=== PATIENT | male | born 1965 | race Caucasian/White ===

== ENCOUNTER 2017-02-28 10:12 | Inpatient (IN) | payer SELFPAY ==
[~2017-02-28] VITALS: Ht 188 cm; Wt 109.0 kg
[2017-02-28] VITALS (10 sets, daily range): BP systolic 123–168; BP diastolic 80–97; PULSE 56–88; RESP 16–20; TEMP 97.8–98.7; O2SAT 95–99
[2017-02-28] MEDS ORDERED: SODIUM CHLOR 0.9% 1000 ML INJ 1,000 ML IV ONE (12:10)
[2017-02-28 12:15] LABS: I-STAT POTASSIUM 3.8 MMOL/L (3.5-4.9); I-STAT SODIUM 143 MMOL/L (138-146)
[2017-02-28 12:18] LABS: AUTOMATED NEUTROPHIL # 3.2 TH/MM3 (1.8-7.7); BASOPHIL % 0.7 % (0.0-2.0); EOSINOPHIL # 0.1 TH/MM3 (0-0.4); EOSINOPHIL % 2.6 % (0.0-4.0); HEMATOCRIT 36.9 % (39.0-51.0); HEMO FLAGS DIFF FINAL; LYMPH % 27.8 % (9.0-44.0); LYMPHOCYTE # 1.5 TH/MM3 (1.0-4.8); MEAN CELL VOLUME 91.2 FL (80.0-100.0); MEAN CORPUSCULAR HEMOGLOBIN 30.6 PG (27.0-34.0); MEAN CORPUSCULAR HGB CONC 33.6 % (32.0-36.0); MONO % 9.6 % (0.0-8.0); NEUT % 59.3 % (16.0-70.0); PLATELET COUNT 166 TH/MM3 (150-450); RED BLOOD COUNT 4.05 MIL/MM3 (4.50-5.90); RED CELL DISTRIBUTION WIDTH 14.2 % (11.6-17.2); WHITE BLOOD COUNT 5.3 TH/MM3 (4.0-11.0)
[2017-02-28 12:19] LABS: APTT (PATIENT) 28.1 SEC (24.3-30.1); INTERNATIONAL NORMALIZED RATIO 0.9 RATIO
[2017-02-28 12:32] LABS: ANION GAP 8 MEQ/L (5-15); AST (GOT) 14 U/L (15-37); BICARBONATE 24.9 MEQ/L (21.0-32.0); BLOOD UREA NITROGEN 14 MG/DL (7-18); CHLORIDE 108 MEQ/L (98-107); GLOMERULAR FILTRATION RATE 62 ML/MIN (>89); POTASSIUM 3.7 MEQ/L (3.5-5.1); SODIUM (NA) 141 MEQ/L (136-145)
[2017-02-28 12:33] LABS: ALT (GPT) 23 U/L (12-78)
[2017-02-28 12:37] LABS: ALKALINE PHOSPHATASE 83 U/L (45-117); CREATINE KINASE 120 U/L (39-308); TOTAL BILIRUBIN ADULT 0.3 MG/DL (0.2-1.0)
--- NOTE | 2017-02-28 12:52 | RADRPT ---
EXAM DATE/TIME: 02/28/2017 11:56 [facility] COMPARISON: No previous studies available for comparison. INDICATIONS : Generalize weakness nausea,syncope RADIATION DOSE: 40.38 CTDIvol (mGy) This report was called by Dr. Diana Hernandez to Dr. Gayle at 12: 10 MEDICAL HISTORY : Unable to obtain SURGICAL HISTORY : Unabl to obtain ENCOUNTER: Initial ACUITY: 1 day PAIN SCALE: 3/10 LOCATION: cranial TECHNIQUE: Multiple contiguous axial images were obtained of the head. Using automated exposure control and adj ustment of the mA and/or kV according to patient size, radiation dose was kept as low as reasonably a chievable to obtain optimal diagnostic quality images. DICOM format image data is available electro nically for review and comparison. FINDINGS: CEREBRUM: The ventricles are normal for age. No evidence of midline shift, mass lesion, hemorrhage or acute in farction. No extra-axial fluid collections are seen. POSTERIOR FOSSA: The cerebellum and brainstem are intact. The 4th ventricle is midline. The cerebellopontine angle i s unremarkable. EXTRACRANIAL: The visualized portion of the orbits is intact. SKULL: The calvaria is intact. No evidence of skull fracture. CONCLUSION: 1. No acute intracranial abnormality. Leonardo Hernandez MD on February 28, 2017 at 12:49 Board Certified Radiologist. This report was verified electronically.
--- NOTE | 2017-02-28 12:56 | RADRPT ---
EXAM DATE/TIME: 02/28/2017 12:19 [facility] COMPARISON: No previous studies available for comparison. INDICATIONS : Stroke alert, confusion, dizziness. MEDICAL HISTORY : None. SURGICAL HISTORY : None. ENCOUNTER: Initial ACUITY: 1 day PAIN SCORE: 0/10 LOCATION: Bilateral chest FINDINGS: A single view of the chest demonstrates the lungs to be symmetrically aerated without evidence of mas s, infiltrate or effusion. The cardiomediastinal contours are unremarkable. Osseous structures are intact. CONCLUSION: No acute disease. Doug Núñez Jr., MD on February 28, 2017 at 12:54 Board Certified Radiologist. This report was verified electronically.
--- NOTE | 2017-02-28 13:02 | PD ---
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 Patient believes he passed out. Patient recalls pulling on the side of the road because he felt so ill and sick. Patient also noted feeling weak in his arms and legs and continue. She denied numbness difficulty speaking cough fever shortness of breath. Patient states his headache has persisted since he has been in the ER. [facility] Past Medical History Medical History: Denies Significant Hx Diminished Hearing: No Tetanus Vaccination: > 5 Years Influenza Vaccination: No Past Surgical History Eye Surgery: Yes (cataracts ) Social History Alcohol Use: Yes (ocassionally) Tobacco Use: Yes (1 pack per day) Substance Use: No (pt denies) Allergies-Medications (Allergen,Severity, Reaction): Coded Allergies: No Known Allergies (Unverified , 02/28/17) Reported Meds & Prescriptions Reported Meds & Active Scripts Active No Active Prescriptions or Reported Medications Review of Systems ROS Limitations: Clinical Condition, Altered Mental Status Except as stated in HPI: all other systems reviewed are Neg General / Constitutional: No: Fever, Chills, Weight Gain, Weight Loss, Other Eyes: No: Diploplia, Blurred Vision, Photophobia, Drainage, Redness, Foreign Body Sensation, Pain, Tearing, Blind Spots, Visual changes, Blindness, Other HENT: Positive: Headaches, No: Vertigo, Lightheadedness, Sore Throat, Rhinitis , Rhinorrhea, Congestion, Nosebleed, Neck Stiffness, Neck Pain, Masses, Gingival Bleeding, Dental Difficulties, Ear Discharge, Earache, Other Cardiovascular: Positive: Chest Pain or Discomfort, No: Palpitations, Irregular Rhythm, Tachycardia, Diaphoresis, Syncope, Dyspnea on exertion, Varicosities, Edema, Cyanosis, Varicosities, Phlebitis, Claudication, Other Respiratory: No: Cough, Shortness of Breath, Wheezing, Sneezing, Orthopnea, Hemoptysis, Stridor, Night Sweats, Pleuritic Pain, Other Gastrointestinal: Positive: Nausea, No: Vomiting, Diarrhea, Abdominal Pain, Hematemesis, Hematochezia, Constipation, Changes in Bowel Habits, Indigestion, Dysphagia, Loss of Appetite, Other Genitourinary: No: Urgency, Frequency, Dysuria, Nocturia, Hematuria, Decreased Urinary Output, Oliguria, Hesitancy, Dribbling, Incontinence, Pelvic Pain, Flank Pain, Dyspareunia, Discharge, Dysmenorrhea, Menorrhagia, Metorrhagia, Vaginal Bleeding, Other Musculoskeletal: No: Myalgias, Arthralgias, Limited ROM, Weakness, Cramping, Edema, Pain, Atrophy, Other Skin: No Rash, No Itching, No Dryness, No Lumps, No Hives, No Change in Pigmentation, No Change in nails, No Alopecia, No Lesions, No Breast Lumps, No Breast Tenderness, No Breast Swelling, No Other Neurologic: Positive: Weakness, Other (lightheaded), No: Dizziness, Syncope, Focal Abnormalities, Coordination Problem, Tremor, Ataxia, Headache, Change in Mentation, Slurred Speech, Paresthesia, Incontinence, Seizures, Sensory Disturbance Psychiatric: No: Anxiety, Depression, Suicidal Ideations, Disorder of Thought, Mood Disorder, Substance Abuse, Homicidal Ideation, Other Endocrine: No: Heat Intolerance, Cold Intolerance, Polyuria, Polydipsia, Other Hematologic/Lymphatic: No: Easy Bruising, Lymph Node Enlargement, Other Physical Exam Exam Limitations: Clinical Condition Narrative GENERAL: GENERAL: [32-year-old male who appears fatigued SKIN: Focused skin assessment warm/dry.no lesions no cyanosis no erythema HEAD: Atraumatic. Normocephalic. EYES: Pupils equal and round and reactive . No scleral icterus. No injection or drainage. ENT: No nasal bleeding or discharge. Mucous membranes pink and moist. NECK: Trachea midline. No JVD. CARDIOVASCULAR: S1-S2 appreciated. Regular rate and rhythm. No murmur appreciated. Pulses normal throughout. RESPIRATORY: No accessory muscle use. Clear to auscultation. Breath sounds equal bilaterally. GASTROINTESTINAL: Abdomen soft, non-tender, nondistended. Hepatic and splenic margins not palpable. Bowel sounds normal. No peritoneal signs. MUSCULOSKELETAL: No obvious deformities. No clubbing. No cyanosis. No edema. NEUROLOGICAL: Awake and alert and oriented 3.. Patient has decreased taste tester strength on the right upper extremity and mild drift in the right upper external and mild drift in the right lower extremity PSYCHIATRIC: Affect flat; insight and judgment normal. No suicidal or homicidal ideation. SKIN: Focused skin assessment warm/dry.no lesions no cyanosis no erythema HEAD: Atraumatic. Normocephalic. EYES: Pupils equal and round and reactive . No scleral icterus. No injection or drainage. ENT: No nasal bleeding or discharge. Mucous membranes pink and moist. NECK: Trachea midline. No JVD. CARDIOVASCULAR: S1-S2 appreciated. Regular rate and rhythm. No murmur appreciated. Pulses normal throughout. RESPIRATORY: No accessory muscle use. Clear to auscultation. Breath sounds equal bilaterally. GASTROINTESTINAL: Abdomen soft, non-tender, nondistended. Hepatic and splenic margins not palpable. Bowel sounds normal. No peritoneal signs. MUSCULOSKELETAL: No obvious deformities. No clubbing. No cyanosis. No edema. NEUROLOGICAL: Awake and alert and oriented 3.. No obvious cranial nerve deficits. Motor and sensory exam grossly within normal limits. Normal speech. No meningeal signs. PSYCHIATRIC: Appropriate mood and affect; insight and judgment normal. No suicidal or homicidal ideation. Data Data Last Documented VS Vital Signs Date Time Temp Pulse Resp B/P Pulse Ox O2 Delivery O2 Flow Rate FiO2 02/28/17 15:24 98.0 72 16 157/88 99 Room Air 02/28/17 11:45 2.00 Orders Diet Npo (02/28/17 Lunch) Activity Bed Rest (02/28/17 ) Electrocardiogram (02/28/17 ) Prothrombin Time / Inr (Pt) (02/28/17 12:10) Act Partial Throm Time (Ptt) (02/28/17 12:10) Complete Blood Count With Diff (02/28/17 12:10) Fibrinogen (02/28/17 12:10) Ua Includes Microscopic (02/28/17 12:10) Drug Screen, Random Urine (02/28/17 12:10) Ct Brain W/O Iv Contrast(Rout) (02/28/17 ) Consult Neurology (02/28/17 ) Blood Glucose (02/28/17 12:10) Ecg Monitoring (02/28/17 12:10) Neuro Checks Q2HX12,Q4H (02/28/17 12:10) Nursing Bedside Swallow Assess .ONCE (02/28/17 12:10) Iv Access Insert/Monitor (02/28/17 12:10) NPO (02/28/17 12:10) Oximetry (02/28/17 12:10) Oxygen Administration (02/28/17 12:10) Sodium Chlor 0.9% 1000 Ml Inj (Ns 1000 M (02/28/17 12:10) Resp Oxygen Devante C Titrat 1-4 L (02/28/17 12:10) Cath For Specimen (02/28/17 12:10) Mri Brain W/O Contrast (02/28/17 12:10) Mra Brain W/O Contrast (Cow) (02/28/17 12:10) Mra Carotids W Contrast (02/28/17 12:10) Us Carotid Arteries Comp Bilat (02/28/17 ) Alcohol (Ethanol) (02/28/17 11:45) Creatine Kinase (Cpk) (02/28/17 11:45) Comprehensive Metabolic Panel (02/28/17 11:45) I-Stat Creatinine (02/28/17 11:45) I-Stat Profile (02/28/17 11:45) Troponin I (02/28/17 11:45) Chest, Single Ap (02/28/17 ) (Hub Use Only)Inp Phy Cons/Ref (02/28/17 ) Aspirin (Aspirin) (02/28/17 15:30) Metoclopramide Inj (Reglan Inj) (02/28/17 15:30) Ondansetron Inj (Zofran Inj) (02/28/17 15:30) Labs Laboratory Tests Test 02/28/17 02/28/17 11:45 12:40 White Blood Count 5.3 TH/MM3 Red Blood Count 4.05 MIL/MM3 Hemoglobin 12.4 GM/DL Bedside Hemoglobin 11.2 G/DL Hematocrit 36.9 % Bedside Hematocrit 33.0 % Mean Corpuscular Volume 91.2 FL Mean Corpuscular Hemoglobin 30.6 PG Mean Corpuscular Hemoglobin 33.6 % Concent Red Cell Distribution Width 14.2 % Platelet Count 166 TH/MM3 Mean Platelet Volume 9.1 FL Neutrophils (%) (Auto) 59.3 % Lymphocytes (%) (Auto) 27.8 % Monocytes (%) (Auto) 9.6 % Eosinophils (%) (Auto) 2.6 % Basophils (%) (Auto) 0.7 % Neutrophils # (Auto) 3.2 TH/MM3 Lymphocytes # (Auto) 1.5 TH/MM3 Monocytes # (Auto) 0.5 TH/MM3 Eosinophils # (Auto) 0.1 TH/MM3 Basophils # (Auto) 0.0 TH/MM3 CBC Comment DIFF FINAL Differential Comment Prothrombin Time 10.0 SEC Prothromb Time International 0.9 RATIO Ratio Activated Partial 28.1 SEC Thromboplast Time Fibrinogen 342 mg/dL Bedside Sodium 143 MMOL/L Sodium Level 141 MEQ/L Bedside Potassium 3.8 MMOL/L Potassium Level 3.7 MEQ/L Bedside Chloride 104 MMOL/L Chloride Level 108 MEQ/L Carbon Dioxide Level 24.9 MEQ/L Anion Gap 8 MEQ/L Bedside Blood Urea Nitrogen 14 MG/DL Blood Urea Nitrogen 14 MG/DL Creatinine 1.21 MG/DL Bedside Creatinine 1.2 MG/DL Estimat Glomerular Filtration 62 ML/MIN Rate Bedside Glucose 109 MG/DL Random Glucose 103 MG/DL Calcium Level 8.5 MG/DL Total Bilirubin 0.3 MG/DL Aspartate Amino Transf 14 U/L (AST/SGOT) Alanine Aminotransferase 23 U/L (ALT/SGPT) Alkaline Phosphatase 83 U/L Total Creatine Kinase 120 U/L Troponin I LESS THAN 0.02 NG/ML Total Protein 6.8 GM/DL Albumin 3.2 GM/DL Ethyl Alcohol Level LESS THAN 3 MG/DL Urine Color LIGHT-YELLOW Urine Turbidity CLEAR Urine pH 7.0 Urine Specific [place] 1.009 Urine Protein NEG mg/dL Urine Glucose (UA) NEG mg/dL Urine Ketones NEG mg/dL Urine Occult Blood NEG Urine Nitrite NEG Urine Bilirubin NEG Urine Urobilinogen LESS THAN 2.0 MG/DL Urine Leukocyte Esterase NEG Urine WBC LESS THAN 1 /hpf Microscopic Urinalysis Comment Urine Opiates Screen NEG Urine Barbiturates Screen NEG Urine Amphetamines Screen NEG Urine Benzodiazepines Screen NEG Urine Cocaine Screen NEG Urine Cannabinoids Screen NEG [facility] Medical Decision Making Medical Screen Exam Complete: Yes Emergency Medical Condition: Yes Medical Record Reviewed: Yes Interpretation(s) EKG shows normal sinus rhythm LVH no acute ST changes CT scan of the brain is negative Chemistry unremarkable troponin negative UA negative urine drug screen negative Differential Diagnosis Differential diagnoses altered mental status acute cephalgia TIA CVA chest pain acute coronary syndrome Narrative Course This is a 52-year-old patient who has a remote history of hypertension who began to develop chest pain then subsequently developed a severe headache with a sick feeling in his stomach lightheadedness and diaphoresis which caused him to pass out. Patient recalls pulling over to the inside of the road since the onset of symptoms he has felt very weak and he has weakness in the right upper extremity and right lower extremity . She had a brain is negative troponin 1 is normal EKG showed no acute ischemic changes urine drug screen is negative Stroke alert called us and symptoms are improving no TPA was given patient continues to complain of headache aspirin full-strength given along with Reglan and Zofran. Does case with Dr. Jones. Patient to be admitted to the medical service on a telemetry bed to have a MRA and MRI of the brain performed normal carotid Doppler studies and to have repeat troponin levels performed. Patient' s has stable vital signs at this time Diagnosis Primary Impression: Syncope Additional Impressions: Right sided weakness Chest pain Admitting Information Admitting Physician Requests: Admit Scripts No Active Prescriptions or Reported Meds Condition: Stable Paramjit Gayle MD Feb 28, 2017 13:02
[2017-02-28 14:08] LABS: AMPHETAMINE, URINE NEG (NEG); BARBITURATES, URINE NEG (NEG); COCAINE, URINE NEG (NEG)
[2017-02-28 14:11] LABS: BLOOD, URINE NEG (NEG); GLUCOSE,URINE NEG (NEG); KETONE, URINE NEG (NEG); NITRITE,URINE NEG (NEG); URINE COLOR LIGHT-YELLOW (YELLW/STRAW)
--- NOTE | 2017-02-28 15:04 | RADRPT ---
EXAM DATE/TIME: 02/28/2017 14:21 [facility] COMPARISON: No previous studies available for comparison. INDICATIONS : Cephalgia. MEDICAL HISTORY : Hypertension. SURGICAL HISTORY : Cataracts/ Rt shoulder. ENCOUNTER: Initial ACUITY: 1 day PAIN SCORE: 4/10 LOCATION: head Please note a normal MRA of the brain does not entirely exclude the possibility of a small aneurysm, nor the possibility of distal intracranial vessel disease. TECHNIQUE: 3D time of flight MRA was performed. Source images, multiplanar STS MIP, and 3D volume MIP reconstru ctions were reviewed. FINDINGS: There is excellent visualization of the major intracranial arteries out to the second-order branch ve ssels. There is no evidence for aneurysm, vessel truncation or stenosis, and no evidence for vascula r malformation. CONCLUSION: 1. Negative examination. Leonardo Hernandez MD on February 28, 2017 at 14:59 Board Certified Radiologist. This report was verified electronically.
--- NOTE | 2017-02-28 15:12 | RADRPT ---
EXAM DATE/TIME: 02/28/2017 14:21 [facility] COMPARISON: CT BRAIN W/O CONTRAST, February 28, 2017, 11:56. INDICATIONS : Cephalgia. MEDICAL HISTORY : Hypertension. SURGICAL HISTORY : Cataracts. Rt shoulder. ENCOUNTER: Initial ACUITY: 1 day PAIN SCORE: 4/10 LOCATION: head TECHNIQUE: Multiplanar, multisequence MRI of the brain was performed without contrast. FINDINGS: CEREBRUM: The ventricles are normal for age. No evidence of midline shift, mass lesion, hemorrhage or acute in farction. No extraaxial fluid collections are seen. The pituitary gland and suprasellar cistern are normal in configuration. WHITE MATTER: No significant signal abnormalities are seen in the white matter. POSTERIOR FOSSA: The cerebellum and brainstem are intact. The 4th ventricle is midline. The cerebellopontine angle is unremarkable. The cerebellar tonsils are normal in position. DIFFUSION IMAGING: No focal areas of restricted diffusion are seen. No evidence of acute infarction. EXTRACRANIAL: The visualized portions of the orbits and paranasal sinuses are unremarkable. CONCLUSION: Normal examination. Doug Núñez Jr., MD on February 28, 2017 at 15:08 Board Certified Radiologist. This report was verified electronically.
--- NOTE | 2017-02-28 15:20 | RADRPT ---
EXAM DATE/TIME: 02/28/2017 14:21 [facility] COMPARISON: No previous studies available for comparison. INDICATIONS : Syncope. MEDICAL HISTORY : Syncope. SURGICAL HISTORY : Right shoulder surgery. ENCOUNTER: Initial ACUITY: 1 day PAIN SCORE: 0/10 LOCATION: Bilateral neck PEAK SYSTOLIC VELOCITIES (cm/sec): ICA/CCA RATIO: Right: 1.0 Left: 0.6 ICA: Right: 112 Left: 88 CCA: Right: 111 Left: 153 ECA: Right: 90 Left: 127 VERTEBRAL: Right: 64 antegrade Left: 51 antegrade Elevated flow velocities and ICA/CCA ratios have been found to correlate with increased degrees of vessel stenosis, calculated as percentage of diameter relative to a normal segment of distal ICA/CCA FINDINGS: RIGHT CAROTID: Minimal calcified plaque of the proximal ICA. No significant stenosis is visualized. The waveforms a re within normal limits. LEFT CAROTID: Minimal calcified plaque of the proximal ICA. No significant stenosis is visualized. The waveforms a re within normal limits. VERTEBRAL ARTERIES: Antegrade flow is seen in both vertebral arteries. MISCELLANEOUS: None. CONCLUSION: 1. No hemodynamically significant stenosis involving either carotid artery. 2. Antegrade flow involving both vertebral arteries. Doug Núñez Jr., MD on February 28, 2017 at 15:17 Board Certified Radiologist. This report was verified electronically.
[2017-02-28] MEDS ORDERED: ONDANSETRON HCL 4 MG/2 ML VIAL IV PUSH ONE (15:30)
[2017-02-28] MEDS ORDERED: METOCLOPRAMIDE HCL 10 MG/2 ML VIAL IV PUSH ONE (15:30)
[2017-02-28] MEDS ORDERED: ASPIRIN 325 MG TAB PO ONE (15:30)
[2017-02-28] MEDS ORDERED: GADODIAMIDE PF 287 MG/ML 20 ML VIAL (for RAD MRI) IV ONE (16:12)
--- NOTE | 2017-02-28 16:13 | EKG ---
Date Performed: 02/28/2017 Time Performed: 11:48:17 PTAGE: 52 years EKG: Sinus rhythm NORMAL ECG NO PREVIOUS TRACING DOCTOR: Kishan Leiva Interpretating Date/Time 02/28/2017 16:12:42
--- NOTE | 2017-02-28 16:13 | RADRPT ---
EXAM DATE/TIME: 02/28/2017 14:21 [facility] COMPARISON: No previous studies available for comparison. INDICATIONS : Stroke. CONTRAST: 20 cc Omniscan (gadodiamide) IV MEDICAL HISTORY : Hypertension. SURGICAL HISTORY : Cataracts/Rt shoulder. ENCOUNTER: Initial ACUITY: 1 day PAIN SCORE: 0/10 LOCATION: neck Percent stenosis is calculated using the diameter of the stenotic region over the diameter of the nor mal distal internal carotid artery. TECHNIQUE: Bolus infused MRA of the extracranial circulation was performed using a neurovascular coil. Post pro cessing was performed including rotating subvolume maximum intensity projections of each carotid huy ry, rotating full volume maximum intensity projections of both carotid arteries, sagittal and coronal sliding thin slab reformations of each carotid artery, and left oblique sliding thin slab reformatio n through the aortic arch to include the origin of the arch branch vessels. FINDINGS: AORTIC ARCH: There is a three vessel origin of the great vessels from the aorta. No evidence of ostial narrowing. RIGHT CAROTID: The common carotid artery is intact. The carotid bulb has a normal configuration without ulceration or narrowing. The internal carotid artery lumen is smooth without stenosis. The external carotid ar mary is intact. LEFT CAROTID: The common carotid artery is intact. The carotid bulb has a normal configuration without ulceration or narrowing. The internal carotid artery lumen is smooth without stenosis. The external carotid ar mary is intact. VERTEBRALS: The vertebral arteries have a symmetric diameter. No stenotic lesions are seen. CONCLUSION: 1. Normal MRA examination. No evidence for significant flow limiting stenosis in the carotid or verte bral arteries. Kit Kelsey MD on February 28, 2017 at 16:08 Board Certified Radiologist. This report was verified electronically.
[2017-02-28] MEDS ORDERED: ENALAPRILAT 1.25 MG/ML VIAL IV PUSH PRN (16:30)
--- NOTE | 2017-02-28 16:35 | HHI.HP ---
[facility] Service [facility] Primary Care Physician No Primary Care Physician Admission Diagnosis TIA vs CVA Diagnoses: (1) Right sided weakness Diagnosis: Principal (2) Chest pain Diagnosis: Principal Chief Complaint: headache Travel History International Travel<30 Days: No Contact w/Intl Traveler <30 Da: No Traveled to Known Affected Are: No History of Present Illness patient is a 52 y/o male with history of hypertension- not on any medication, presented to ER with headache. he says that he woke up with ' terrible headache this morning'.while he was driving to work he started to feel sick with chest pain and nausea. he says that the pain was midsternal with some radiation to the upper neck. he had some nausea but no emesis. he says that then he started to have some weakness of the right upper and lower extremity-although more pronounced in right hand. he doesn't remember if he had any slurred speech. he says that then he passed out. he regained his consciousness after a few minutes however still had some headache and right sided weakness for which he decided to come to ER. stroke alert was called at the time of arrival to ER. at the time of my evaluation he was comfortable with no chest pain and with improved headache. Review of Systems Cardiovascular: COMPLAINS OF: Chest pain Gastrointestinal: COMPLAINS OF: Nausea Neurologic: COMPLAINS OF: Headache Past Family Social History Past Medical History hypertension Past Surgical History shoulder surgery Reported Medications none Allergies: Coded Allergies: No Known Allergies (Unverified , 02/28/17) Active Ordered Medications Current Medications Sodium Chloride (NS 1000 ml Inj) 1,000 ml @ 70 mls/hr [id number] ONCE IV Last administered on 02/28/17 12:32; Start 02/28/17 at 12:10; Stop 03/01/17 at 02:27 Aspirin (Aspirin) 325 mg ONCE ONCE PO Last administered on 02/28/17 15:34; Start 02/28/17 at 15:30; Stop 02/28/17 at 15:31; Status DC Metoclopramide HCl (Reglan Inj) 5 mg ONCE ONCE IV PUSH Last administered on 15:34; Start 02/28/17 at 15:30; Stop 02/28/17 at 15:31; Status DC Ondansetron HCl (Zofran Inj) 4 mg ONCE ONCE IV PUSH Last administered on 15:34; Start 02/28/17 at 15:30; Stop 02/28/17 at 15:31; Status DC Gadodiamide (Omniscan Pf Inj) 20 ml STK-MED ONCE IV Last administered on 16:12; Start 02/28/17 at 16:12; Stop 02/28/17 at 16:13; Status DC Family History not significant. Social History smokes a pack a day- drinks occasionally. Physical Exam Vital Signs Vital Signs Date Time Temp Pulse Resp B/P Pulse Ox O2 Delivery O2 Flow Rate FiO2 02/28/17 15:24 98.0 72 16 157/88 99 Room Air 02/28/17 13:00 97.9 73 16 151/84 98 Room Air 02/28/17 12:13 98 Room Air 02/28/17 12:13 18 98 Room Air 02/28/17 11:45 99 2.00 02/28/17 11:45 95 Nasal Cannula 2.00 02/28/17 11:40 97.8 76 17 159/83 99 Room Air 02/28/17 10:33 79 16 123/82 99 Room Air 02/28/17 10:26 79 17 98 Room Air 02/28/17 10:14 98.7 88 20 168/92 98 Room Air Physical Exam GENERAL: This is a well-nourished, well-developed patient, in no apparent distress. SKIN: No rashes, ecchymoses or lesions. Cool and dry. HEAD: Atraumatic. Normocephalic. No temporal or scalp tenderness. EYES: Pupils equal round and reactive. Extraocular motions intact. No scleral icterus. No injection or drainage. ENT: Nose without bleeding, purulent drainage or septal hematoma. Throat without erythema, tonsillar hypertrophy or exudate. Uvula midline. Airway patent. NECK: Trachea midline. No JVD or lymphadenopathy. Supple, nontender, no meningeal signs. CARDIOVASCULAR: Regular rate and rhythm without murmurs, gallops, or rubs. RESPIRATORY: Clear to auscultation. Breath sounds equal bilaterally. No wheezes , rales, or rhonchi. GASTROINTESTINAL: Abdomen soft, non-tender, nondistended. No hepato-splenomegaly , or palpable masses. No guarding. MUSCULOSKELETAL: Extremities without clubbing, cyanosis, or edema. No joint tenderness, effusion, or edema noted. No calf tenderness. Negative Homans sign bilaterally. NEUROLOGICAL: Awake and alert. mild weakness of the right upper extremity. Laboratory Laboratory Tests Test 02/28/17 02/28/17 11:45 12:40 White Blood Count 5.3 Red Blood Count 4.05 Hemoglobin 12.4 Bedside Hemoglobin 11.2 Hematocrit 36.9 Bedside Hematocrit 33.0 Mean Corpuscular Volume 91.2 Mean Corpuscular Hemoglobin 30.6 Mean Corpuscular Hemoglobin 33.6 Concent Red Cell Distribution Width 14.2 Platelet Count 166 Mean Platelet Volume 9.1 Neutrophils (%) (Auto) 59.3 Lymphocytes (%) (Auto) 27.8 Monocytes (%) (Auto) 9.6 Eosinophils (%) (Auto) 2.6 Basophils (%) (Auto) 0.7 Neutrophils # (Auto) 3.2 Lymphocytes # (Auto) 1.5 Monocytes # (Auto) 0.5 Eosinophils # (Auto) 0.1 Basophils # (Auto) 0.0 CBC Comment DIFF FINAL Differential Comment Prothrombin Time 10.0 Prothromb Time International 0.9 Ratio Activated Partial 28.1 Thromboplast Time Fibrinogen 342 Bedside Sodium 143 Sodium Level 141 Bedside Potassium 3.8 Potassium Level 3.7 Bedside Chloride 104 Chloride Level 108 Carbon Dioxide Level 24.9 Anion Gap 8 Bedside Blood Urea Nitrogen 14 Blood Urea Nitrogen 14 Creatinine 1.21 Bedside Creatinine 1.2 Estimat Glomerular Filtration 62 Rate Bedside Glucose 109 Random Glucose 103 Calcium Level 8.5 Total Bilirubin 0.3 Aspartate Amino Transf 14 (AST/SGOT) Alanine Aminotransferase 23 (ALT/SGPT) Alkaline Phosphatase 83 Total Creatine Kinase 120 Troponin I LESS THAN 0.02 Total Protein 6.8 Albumin 3.2 Ethyl Alcohol Level LESS THAN 3 Urine Color LIGHT-YELLOW Urine Turbidity CLEAR Urine pH 7.0 Urine Specific [place] 1.009 Urine Protein NEG Urine Glucose (UA) NEG Urine Ketones NEG Urine Occult Blood NEG Urine Nitrite NEG Urine Bilirubin NEG Urine Urobilinogen LESS THAN 2.0 Urine Leukocyte Esterase NEG Urine WBC LESS THAN 1 Microscopic Urinalysis Comment Urine Opiates Screen NEG Urine Barbiturates Screen NEG Urine Amphetamines Screen NEG Urine Benzodiazepines Screen NEG Urine Cocaine Screen NEG Urine Cannabinoids Screen NEG Result Diagram: 02/28/17 1145 02/28/17 1145 Imaging Last Impressions Head Magnetic Resonance Angiography 02/28/17 1210 Signed Impressions: Service Date/Time: Sunday, February 28, 2017 14:21 - CONCLUSION: 1. Negative examination. Leonardo Hernandez MD Brain MRI 02/28/17 1210 Signed Impressions: Service Date/Time: Sunday, February 28, 2017 14:21 - CONCLUSION: Normal examination. Doug Núñez Jr., MD Head CT 02/28/17 0000 Signed Impressions: Service Date/Time: Tuesday, February 28, 2017 11:56 - CONCLUSION: 1. No acute intracranial abnormality. Leonardo Hernandez MD Chest X-Ray 02/28/17 0000 Signed Impressions: Service Date/Time: Sunday, February 28, 2017 12:19 - CONCLUSION: No acute disease. Doug Núñez Jr., MD Carotid Artery Ultrasound 02/28/17 0000 Signed Impressions: Service Date/Time: Tuesday, February 28, 2017 14:21 - CONCLUSION: 1. No hemodynamically significant stenosis involving either carotid artery. 2. Antegrade flow involving both vertebral arteries. Doug Núñez Jr., MD EKG; normal sinus rhythm Assessment and Plan Assessment and Plan A/P - right sided weakness/ syncope- possible TIA MRI/MRA brain normal with no significant stenosis on carotid doppler continue aspirin- consult PT/OT and neurology check echo- neuro-checks -chest pain; now is pain free- EKG is normal- on aspirin- will trend the cardiac enzymes -hypertension; noncompliant; vasotec prn for now- will likely start scheduled antihypertensive meds tomorrow. -DVT prophylaxis with SCD's Discussed Condition With ER physician and the patient. case management. Physician Certification 2 Midnight Certification Type: Admission for Inpatient Services Order for Inpatient Services The services are ordered in accordance with Medicare regulations or non- Medicare payer requirements, as applicable. In the case of services not specified as inpatient-only, they are appropriately provided as inpatient services in accordance with the 2-midnight benchmark. Estimated LOS (days): 2 days is the estimated time the patient will need to remain in the hospital, assuming treatment plan goals are met and no additional complications. Post-Hospital Plan: Not yet determined Problem Qualifiers (1) Chest pain: Qualified Code: R07.9 - Chest pain, unspecified type Rai Lee MD Feb 28, 2017 16:35
[2017-02-28] MEDS: ACETAMINOPHEN 325 MG TAB PO PRN ×2 (17:14→21:42)
[2017-02-28] MEDS: ONDANSETRON HCL 4 MG/2 ML VIAL IV PUSH PRN (21:41)
[2017-02-28] MEDS ORDERED: GLUCAGON 1 MG/ML VIAL OTHER PRN (21:45)
[2017-02-28] MEDS ORDERED: SODIUM CHLORIDE 0.9% FLUSH 5 ML FLUSH IV FLUSH PRN (21:45)
[2017-02-28] MEDS ORDERED: DEXTROSE 50% IN WATER 50 ML VIAL(D50) IV PUSH PRN (21:45)
[2017-03-01] VITALS (10 sets, daily range): BP systolic 141–165; BP diastolic 86–93; PULSE 54–81; RESP 16–19; TEMP 96.8–98.6; O2SAT 94–98
[2017-03-01] MEDS: ACETAMINOPHEN 325 MG TAB PO PRN ×2 (04:20→08:32)
[2017-03-01] MEDS ORDERED: ASPIRIN 81 MG CHEW TAB ONE (05:04)
[2017-03-01] MEDS: INSULIN ASPART SUPPLEMENTAL SCALE SQ SCH ×4 (06:40→20:30)
[2017-03-01] MEDS: SODIUM CHLORIDE 0.9% FLUSH 5 ML FLUSH IV FLUSH SCH ×2 (08:28→20:30)
[2017-03-01] MEDS: ASPIRIN EC 81 MG TABEC PO SCH (08:32)
--- NOTE | 2017-03-01 09:14 | MB ---
cc: ANAND YUAN M.D. DATE OF CONSULTATION: 02/28/2017 REASON FOR CONSULTATION Stroke alert. HISTORY OF PRESENT ILLNESS Mr. Mclain is a very nice 52-year-old man who presented to the emergency room after acute onset of right-sided weakness involving the right arm and right leg. He also had a complaint of chest pain. He had some lightheadedness and passed out when he came to, noted the weakness on the right side. There is no seizure activity. He has no prior history of stroke or TIA. His symptoms were very minimal at onset and were showing rapid improvement. Therefore, I felt he was not a candidate for TPA. He has continued to improve but still has some residual weakness on the right, he states. PAST MEDICAL HISTORY He has a history of hypertension, cataract surgery. MEDICATION Medications at home: None. ALLERGIES None known. SOCIAL HISTORY He does smoke. He drinks alcohol occasionally. Denies drug abuse. NEUROLOGIC EXAMINATION VITAL SIGNS: His blood pressure currently is 160/97, pulse 56, respirations 17, temperature 98 degrees. Higher cortical functions are normal. Speech is normal. Cranial nerves are intact. Motor exam, at the present time he has 5/5 strength of all major groups in both upper and lower extremities. Although, he does state he feels somewhat weak on the right. I cannot detect this on exam. Reflexes are symmetric. Fine motor skills are normal. Sensation intact. IMAGING STUDIES MRI of the brain is normal. No sign of acute stroke. MRA of the brain is normal. No sign of large vessel occlusion. MRA of the neck is normal with no sign of significant carotid artery disease and the vertebrals are normal as well. Carotid ultrasound is normal with no sign of any stenosis. LABORATORY DATA White count is 5,300. Hemoglobin 12.4, hematocrit 36.9%, platelets are 166,000. Sodium is 143, potassium 3.8, chloride 104, CO2 24.9, BUN is 14, creatinine 1.21, glucose is 109, PT 10, INR 0.9, APTT 28.1. Tox screen negative. Urinalysis is normal. EKG was sinus rhythm. IMPRESSION Probable TIA which appears to have resolved. As noted above the patient was not a candidate for TPA due to the minimal symptoms which were showing rapid resolution. RECOMMENDATIONS Start aspirin 325 mg daily. Will review the echocardiogram and also check a lipid panel. Also monitor telemetry to rule out atrial fibrillation. If no etiology is identified, consider long-term cardiac monitoring as an outpatient to rule out atrial fibrillation. MD ARTIS Hart/ROSALINO /9:45 PM /9:07 AM
--- NOTE | 2017-03-01 10:56 | HHI.PR ---
Subjective Remarks in no acute distress. complaining of headache. no chest pain or sob. d/w the RN. Objective Vitals Vital Signs Date Time Temp Pulse Resp B/P Pulse Ox O2 Delivery O2 Flow Rate FiO2 03/01/17 08:22 98.5 81 16 158/87 96 03/01/17 08:05 64 03/01/17 04:00 98.6 71 19 165/87 97 03/01/17 00:00 97.5 63 18 141/88 98 02/28/17 22:00 56 02/28/17 20:15 98.7 56 17 160/97 99 02/28/17 18:13 16 02/28/17 17:14 97.8 69 18 135/80 99 Room Air 2.00 02/28/17 15:24 98.0 72 16 157/88 99 Room Air 02/28/17 13:00 97.9 73 16 151/84 98 Room Air 02/28/17 12:13 98 Room Air 02/28/17 12:13 18 98 Room Air 02/28/17 11:45 99 2.00 02/28/17 11:45 95 Nasal Cannula 2.00 02/28/17 11:40 97.8 76 17 159/83 99 Room Air I/O 02/28/17 02/28/17 02/28/17 03/01/17 03/01/17 03/01/17 07:00 15:00 23:00 07:00 15:00 23:00 Intake Total 0 ml 850 ml Output Total 980 ml 1500 ml 1000 ml 500 ml Balance -980 ml -1500 ml -150 ml -500 ml Intake Oral 0 ml 850 ml Output Urine Total 980 ml 1500 ml 1000 ml 500 ml # Voids 1 # Bowel Movements 0 0 0 Result Diagram: 02/28/17 1145 02/28/17 1145 Imaging Last Impressions Neck Magnetic Resonance Angiography 02/28/17 1210 Signed Impressions: Service Date/Time: Tuesday, February 28, 2017 14:21 - CONCLUSION: 1. Normal MRA examination. No evidence for significant flow limiting stenosis in the carotid or vertebral arteries. Kit Kelsey MD Head Magnetic Resonance Angiography 02/28/17 1210 Signed Impressions: Service Date/Time: Tuesday, February 28, 2017 14:21 - CONCLUSION: 1. Negative examination. Leonardo Hernandez MD Brain MRI 02/28/17 1210 Signed Impressions: Service Date/Time: Tuesday, February 28, 2017 14:21 - CONCLUSION: Normal examination. Doug Núñez Jr., MD Head CT 02/28/17 0000 Signed Impressions: Service Date/Time: Tuesday, February 28, 2017 11:56 - CONCLUSION: 1. No acute intracranial abnormality. Leonardo Hernandez MD Chest X-Ray 02/28/17 0000 Signed Impressions: Service Date/Time: Tuesday, February 28, 2017 12:19 - CONCLUSION: No acute disease. Doug Núñez Jr., MD Carotid Artery Ultrasound 02/28/17 0000 Signed Impressions: Service Date/Time: Tuesday, February 28, 2017 14:21 - CONCLUSION: 1. No hemodynamically significant stenosis involving either carotid artery. 2. Antegrade flow involving both vertebral arteries. Doug Núñez Jr., MD Objective Remarks GENERAL: This is a well-nourished, well-developed patient, in no apparent distress. CARDIOVASCULAR: Regular rate and regular rhythm without murmurs, gallops, or rubs. RESPIRATORY: Clear to auscultation. Breath sounds equal bilaterally. No wheezes , rales, or rhonchi. GASTROINTESTINAL: Abdomen soft, non-tender, nondistended. Normal, active bowel sounds MUSCULOSKELETAL: Extremities without clubbing, cyanosis, or edema. NEURO: Alert & Oriented x4 to person, place, time, situation. Moves all ext x4 Procedures none Medications and IVs Current Medications Sodium Chloride (NS 1000 ml Inj) 1,000 ml @ 70 mls/hr [id number] ONCE IV Last administered on 02/28/17 12:32; Start 02/28/17 at 12:10; Stop 03/01/17 at 02:27 ; Status DC Aspirin (Aspirin) 325 mg ONCE ONCE PO Last administered on 02/28/17 15:34; Start 02/28/17 at 15:30; Stop 02/28/17 at 15:31; Status DC Metoclopramide HCl (Reglan Inj) 5 mg ONCE ONCE IV PUSH Last administered on 15:34; Start 02/28/17 at 15:30; Stop 02/28/17 at 15:31; Status DC Ondansetron HCl (Zofran Inj) 4 mg ONCE ONCE IV PUSH Last administered on 15:34; Start 02/28/17 at 15:30; Stop 02/28/17 at 15:31; Status DC Gadodiamide (Omniscan Pf Inj) 20 ml STK-MED ONCE IV Last administered on 16:12; Start 02/28/17 at 16:12; Stop 02/28/17 at 16:13; Status DC Enalaprilat (Vasotec Inj) 1.25 mg Q8H PRN IV PUSH SBP>180, DBP>110; Start 08/05 at 16:30 Aspirin (Ecotrin Ec) 162 mg DAILY PO Last administered on 03/01/17 08:32; Start 03/01/17 at 09:00 Ondansetron HCl (Zofran Inj) 4 mg Q8H PRN IV PUSH NAUSEA Last administered on 21:41; Start 02/28/17 at 16:30 Acetaminophen (Tylenol) 650 mg Q4H PRN PO FEVER/HEADACHE Last administered on 08:32; Start 02/28/17 at 16:30 IV Flush (NS Flush) 2 ml BID IV FLUSH ; Start 03/01/17 at 09:00 IV Flush (NS Flush) 2 ml UNSCH PRN IV FLUSH FLUSH AFTER USING IV ACCESS; Start 02/28/17 at 21:45 Insulin Aspart (NovoLOG SUPPLEMENTAL SCALE) 1 ACHS SQ ; Start 03/01/17 at 07:00 Dextrose (D50w (Vial) Inj) 50 ml UNSCH PRN IV PUSH HYPOGLYCEMIA-SEE COMMENTS; Start 02/28/17 at 21:45 Glucagon (Glucagon Inj) 1 mg UNSCH PRN OTHER HYPOGLYCEMIA-SEE COMMENTS; Start 02/28/17 at 21:45 Aspirin (Aspirin Chew) 81 mg STK-MED ONCE .ROUTE ; Start 03/01/17 at 05:04; Stop 03/01/17 at 05:05; Status DC A/P Assessment and Plan A/P - right sided weakness/ syncope- possible TIA MRI/MRA brain normal with no significant stenosis on carotid doppler continue aspirin- consulted PT/OT . neurology consult appreciated. echo pending- neuro-checks -chest pain; now is pain free- EKG is normal- on aspirin- cardiac enzymes negative. will do stress test. -hypertension; noncompliant;start lisinopril- vasotec prn for now- -DVT prophylaxis with SCD's Discharge Planning dc home tomorrow if stable- pending the echo and stress test. d/w . Rai Lee MD Mar 01, 2017 10:56
[2017-03-01] MEDS: ACETAMINOPHEN/HYDROcodone 325 MG/5 MG TAB PO PRN ×3 (12:02→20:30)
[2017-03-01] MEDS: LISINOPRIL 10 MG TAB PO SCH (12:02)
[2017-03-01 14:48] LABS: HDL CHOLESTEROL 33.2 MG/DL (40.0-60.0); LDL CHOLESTEROL 117 MG/DL (0-99)
[2017-03-01 17:31] LABS: HEMOGLOBIN A1a 1.1 %; HEMOGLOBIN A1b 0.8 %; HEMOGLOBIN Ao 85.1 %; HEMOGLOBIN F 1.1 %; HEMOGLOBIN LA1C 2.1 %; HEMOGLOBIN P3 3.6 %
--- NOTE | 2017-03-01 22:02 | HHI.PR ---
Review/Management Diagnosis TIA elevated LDL Plan continue asa statin ok to d/c home from neurostanoint if echo normal Diagnosis/Plan: Subjective Subjective Comments No acute events reported. He feels strength is normal Active Medications Current Medications Medications (Trade) Dose Ordered Sig/Nadia Route Start Time Stop Time Status Last Admin (Vasotec Inj) 1.25 mg Q8H PRN IV PUSH 02/28/17 16:30 (Ecotrin Ec) 162 mg DAILY PO 03/01/17 09:00 03/01/17 08:32 (Zofran Inj) 4 mg Q8H PRN IV PUSH 02/28/17 16:30 02/28/17 21:41 (Tylenol) 650 mg Q4H PRN PO 02/28/17 16:30 03/01/17 08:32 (NS Flush) 2 ml BID IV FLUSH 03/01/17 09:00 03/01/17 20:30 (NS Flush) 2 ml UNSCH PRN IV FLUSH 02/28/17 21:45 (NovoLOG SUPPLEMENTAL SCALE) 1 ACHS SQ 03/01/17 07:00 (D50w (Vial) Inj) 50 ml UNSCH PRN IV PUSH 02/28/17 21:45 (Glucagon Inj) 1 mg UNSCH PRN OTHER 02/28/17 21:45 ([place]ray 5-325 Mg) 1 tab Q4H PRN PO 03/01/17 11:00 03/01/17 20:30 Lisinopril 10 mg 10 mg DAILY PO 03/01/17 11:00 03/01/17 12:02 (NS 1000 ml Inj) 1,000 ml @ 100 mls/hr Q10H IV 03/01/17 23:00 Allergies Allergies Coded Allergies No Known Allergies (Unverified02/28/17) Exam I&O / VS 02/28/17 02/28/17 03/01/17 15:00 23:00 07:00 Intake Total 0 ml 850 ml Output Total 980 ml 1500 ml 1000 ml Balance -980 ml -1500 ml -150 ml Intake Oral 0 ml 850 ml Output Urine Total 980 ml 1500 ml 1000 ml # Voids 1 # Bowel Movements 0 0 0 Vital Signs Date Time Temp Pulse Resp B/P Pulse Ox O2 Delivery O2 Flow Rate FiO2 03/01/17 19:59 96.8 68 18 145/86 98 03/01/17 18:05 94 Nasal Cannula 2.00 03/01/17 16:09 96.9 72 16 163/93 94 03/01/17 13:35 96 Nasal Cannula 2.00 03/01/17 12:21 97.5 65 16 164/88 98 03/01/17 08:22 98.5 81 16 158/87 96 03/01/17 08:05 64 03/01/17 04:00 98.6 71 19 165/87 97 03/01/17 00:00 97.5 63 18 141/88 98 Exam Comments alert, oriented, speech normal CN 2-12 normal MOTOR--5/5 BUE Objective Radiology Results MRI brain normal MRA brain normal MRA carotids normal Micro and Labs Laboratory Tests Test 03/01/17 03/01/17 00:30 11:13 Troponin I LESS THAN 0.02 Hemoglobin A1c 5.7 Triglycerides Level 120 Cholesterol Level 174 LDL Cholesterol 117 HDL Cholesterol 33.2 Cholesterol/HDL Ratio 5.24 Diagnostic Tests ECHO--pending Dontrell Jones PhD Mar 01, 2017 22:02
[2017-03-01] MEDS: SODIUM CHLOR 0.9% 1000 ML INJ 1,000 ML IV SCH (22:20)
[2017-03-01] MEDS: ONDANSETRON HCL 4 MG/2 ML VIAL IV PUSH PRN (23:02)
[2017-03-02] VITALS (10 sets, daily range): BP systolic 109–154; BP diastolic 61–84; PULSE 52–65; RESP 16–20; TEMP 96.2–98.6; O2SAT 94–99
[2017-03-02] MEDS: ACETAMINOPHEN/HYDROcodone 325 MG/5 MG TAB PO PRN ×4 (00:28→17:50)
[2017-03-02] MEDS: INSULIN ASPART SUPPLEMENTAL SCALE SQ SCH ×4 (05:36→20:48)
[2017-03-02] MEDS: ASPIRIN EC 81 MG TABEC PO SCH (08:01)
[2017-03-02] MEDS: ATORVASTATIN 10 MG TAB PO SCH (08:01)
[2017-03-02] MEDS: SODIUM CHLORIDE 0.9% FLUSH 5 ML FLUSH IV FLUSH SCH ×2 (08:02→20:46)
[2017-03-02] MEDS: LISINOPRIL 10 MG TAB PO SCH (08:06)
[2017-03-02] MEDS: SODIUM CHLOR 0.9% 1000 ML INJ 1,000 ML IV SCH ×2 (08:07→18:21)
[2017-03-02] MEDS ORDERED: REGADENOSON INJ 0.4 MG/5 ML SYR ONE (10:15)
--- NOTE | 2017-03-02 12:10 | HHI.PR ---
Subjective Remarks resting comfortably with no distress. denies chest pain. headache is better. Objective Vitals Vital Signs Date Time Temp Pulse Resp B/P Pulse Ox O2 Delivery O2 Flow Rate FiO2 03/02/17 09:17 94 Nasal Cannula 2.00 03/02/17 08:05 52 03/02/17 08:00 96.9 54 16 131/84 99 03/02/17 04:00 96.7 59 18 137/73 96 03/02/17 00:00 97.2 54 18 109/61 97 03/01/17 20:00 54 03/01/17 19:59 96.8 68 18 145/86 98 03/01/17 18:05 94 Nasal Cannula 2.00 03/01/17 16:09 96.9 72 16 163/93 94 03/01/17 13:35 96 Nasal Cannula 2.00 03/01/17 12:21 97.5 65 16 164/88 98 I/O 03/01/17 03/01/17 03/01/17 03/02/17 03/02/17 03/02/17 07:00 15:00 23:00 07:00 15:00 23:00 Intake Total 850 ml 1488 ml 674 ml Output Total 1000 ml 500 ml 600 ml Balance -150 ml -500 ml 888 ml 674 ml Intake Oral 850 ml 360 ml IV Total 1128 ml 674 ml Output Urine Total 1000 ml 500 ml 600 ml # Voids 3 # Bowel Movements 0 0 Result Diagram: 02/28/17 1145 02/28/17 1145 Imaging Last Impressions Neck Magnetic Resonance Angiography 02/28/17 1210 Signed Impressions: Service Date/Time: Tuesday, February 28, 2017 14:21 - CONCLUSION: 1. Normal MRA examination. No evidence for significant flow limiting stenosis in the carotid or vertebral arteries. Kit Kelsey MD Head Magnetic Resonance Angiography 02/28/17 1210 Signed Impressions: Service Date/Time: Tuesday, February 28, 2017 14:21 - CONCLUSION: 1. Negative examination. Leonardo Hernandez MD Brain MRI 02/28/17 1210 Signed Impressions: Service Date/Time: Tuesday, February 28, 2017 14:21 - CONCLUSION: Normal examination. Doug Núñez Jr., MD Head CT 02/28/17 0000 Signed Impressions: Service Date/Time: Tuesday, February 28, 2017 11:56 - CONCLUSION: 1. No acute intracranial abnormality. Leonardo Hernandez MD Chest X-Ray 02/28/17 0000 Signed Impressions: Service Date/Time: Tuesday, February 28, 2017 12:19 - CONCLUSION: No acute disease. Doug Núñez Jr., MD Carotid Artery Ultrasound 02/28/17 0000 Signed Impressions: Service Date/Time: Tuesday, February 28, 2017 14:21 - CONCLUSION: 1. No hemodynamically significant stenosis involving either carotid artery. 2. Antegrade flow involving both vertebral arteries. Doug Núñez Jr., MD Objective Remarks GENERAL: This is a well-nourished, well-developed patient, in no apparent distress. CARDIOVASCULAR: Regular rate and regular rhythm without murmurs, gallops, or rubs. RESPIRATORY: Clear to auscultation. Breath sounds equal bilaterally. No wheezes , rales, or rhonchi. GASTROINTESTINAL: Abdomen soft, non-tender, nondistended. Normal, active bowel sounds MUSCULOSKELETAL: Extremities without clubbing, cyanosis, or edema. NEURO: Alert & Oriented x4 to person, place, time, situation. Moves all ext x4 Procedures none Medications and IVs Current Medications Sodium Chloride (NS 1000 ml Inj) 1,000 ml @ 70 mls/hr [id number] ONCE IV Last administered on 02/28/17 12:32; Start 02/28/17 at 12:10; Stop 03/01/17 at 02:27 ; Status DC Aspirin (Aspirin) 325 mg ONCE ONCE PO Last administered on 02/28/17 15:34; Start 02/28/17 at 15:30; Stop 02/28/17 at 15:31; Status DC Metoclopramide HCl (Reglan Inj) 5 mg ONCE ONCE IV PUSH Last administered on 15:34; Start 02/28/17 at 15:30; Stop 02/28/17 at 15:31; Status DC Ondansetron HCl (Zofran Inj) 4 mg ONCE ONCE IV PUSH Last administered on 15:34; Start 02/28/17 at 15:30; Stop 02/28/17 at 15:31; Status DC Gadodiamide (Omniscan Pf Inj) 20 ml STK-MED ONCE IV Last administered on 16:12; Start 02/28/17 at 16:12; Stop 02/28/17 at 16:13; Status DC Enalaprilat (Vasotec Inj) 1.25 mg Q8H PRN IV PUSH SBP>180, DBP>110; Start 08/05 at 16:30 Aspirin (Ecotrin Ec) 162 mg DAILY PO Last administered on 03/02/17 08:01; Start 03/01/17 at 09:00 Ondansetron HCl (Zofran Inj) 4 mg Q8H PRN IV PUSH NAUSEA Last administered on 23:02; Start 02/28/17 at 16:30 Acetaminophen (Tylenol) 650 mg Q4H PRN PO FEVER/HEADACHE Last administered on 08:32; Start 02/28/17 at 16:30 IV Flush (NS Flush) 2 ml BID IV FLUSH Last administered on 03/01/17 20:30; Start 03/01/17 at 09:00 IV Flush (NS Flush) 2 ml UNSCH PRN IV FLUSH FLUSH AFTER USING IV ACCESS; Start 02/28/17 at 21:45 Insulin Aspart (NovoLOG SUPPLEMENTAL SCALE) 1 ACHS SQ ; Start 03/01/17 at 07:00 Dextrose (D50w (Vial) Inj) 50 ml UNSCH PRN IV PUSH HYPOGLYCEMIA-SEE COMMENTS; Start 02/28/17 at 21:45 Glucagon (Glucagon Inj) 1 mg UNSCH PRN OTHER HYPOGLYCEMIA-SEE COMMENTS; Start 02/28/17 at 21:45 Aspirin (Aspirin Chew) 81 mg STK-MED ONCE .ROUTE ; Start 03/01/17 at 05:04; Stop 03/01/17 at 05:05; Status DC Acetaminophen/ Hydrocodone Bitart ([place] 5-325 Mg) 1 tab Q4H PRN PO SEE LABEL COMMENTS Last administered on 03/02/17 05:36; Start 03/01/17 at 11:00 Lisinopril 10 mg 10 mg DAILY PO Last administered on 03/02/17 08:06; Start at 11:00 Sodium Chloride (NS 1000 ml Inj) 1,000 ml @ 100 mls/hr Q10H IV Last administered on 03/02/17 08:07; Start 03/01/17 at 23:00 Atorvastatin Calcium (Lipitor) 10 mg DAILY PO Last administered on 03/02/17 08 :01; Start 03/02/17 at 09:00 Regadenoson (Lexiscan Inj) 0.4 mg STK-MED ONCE .ROUTE Last administered on 03/02 10:15; Start 03/02/17 at 10:15; Stop 03/02/17 at 10:16; Status DC A/P Assessment and Plan A/P - right sided weakness/ syncope- possible TIA MRI/MRA brain normal with no significant stenosis on carotid doppler continue aspirin and started on statin- consulted PT/OT . neurology consult appreciated and cleared for discharge. echo and stress test pending- -chest pain; now is pain free- EKG is normal- on aspirin- cardiac enzymes negative. stress test pending. -hypertension; noncompliant;started lisinopril- vasotec prn for now- -DVT prophylaxis with SCD's Discharge Planning dc home today - pending stress test and echo. f/u; pcp and neurology. see med list. d/w the patient and RN. Rai Lee MD Mar 02, 2017 12:10
[2017-03-02] MEDS ORDERED: ASPI-99 PO (12:11)
[2017-03-02] MEDS ORDERED: LIPI10TA PO (12:11)
[2017-03-02] MEDS ORDERED: LISI10TA3 PO (12:11)
--- NOTE | 2017-03-02 12:12 | HHI.DS ---
Discharge Summary Admission Date Feb 28, 2017 at 17:19 Discharge Date: Mar 02, 2017 Admitting Diagnosis TIA vs CVA (1) Right sided weakness ICD Code: R53.1 Diagnosis: Principal (2) Chest pain ICD Code: R07.9 Diagnosis: Principal Procedures none Brief History - From Admission patient is a 52 y/o male with history of hypertension- not on any medication, presented to ER with headache. he says that he woke up with ' terrible headache this morning'.while he was driving to work he started to feel sick with chest pain and nausea. he says that the pain was midsternal with some radiation to the upper neck. he had some nausea but no emesis. he says that then he started to have some weakness of the right upper and lower extremity-although more pronounced in right hand. he doesn't remember if he had any slurred speech. he says that then he passed out. he regained his consciousness after a few minutes however still had some headache and right sided weakness for which he decided to come to ER. stroke alert was called at the time of arrival to ER. at the time of my evaluation he was comfortable with no chest pain and with improved headache. CBC/BMP: 02/28/17 1145 02/28/17 1145 Significant Findings Laboratory Tests Test 02/28/17 02/28/17 03/01/17 03/01/17 11:45 18:52 00:30 11:13 Red Blood Count 4.05 MIL/MM3 (4.50-5.90) Hemoglobin 12.4 GM/DL (13.0-17.0) Bedside Hemoglobin 11.2 G/DL (12.0-17.0) Hematocrit 36.9 % (39.0-51.0) Bedside Hematocrit 33.0 % (38.0-51.0) Monocytes (%) (Auto) 9.6 % (0.0-8.0) Chloride Level 108 MEQ/L (98-107) Estimat Glomerular Filtration 62 ML/MIN (>89) Rate Bedside Glucose 109 MG/DL (60-95) Aspartate Amino Transf 14 U/L (15-37) (AST/SGOT) Troponin I LESS THAN 0.02 LESS THAN 0.02 LESS THAN 0.02 NG/ML NG/ML NG/ML (0.02-0.05) (0.02-0.05) (0.02-0.05) Albumin 3.2 GM/DL (3.4-5.0) LDL Cholesterol 117 MG/DL (0-99) HDL Cholesterol 33.2 MG/DL (40.0-60.0) Imaging Last Impressions Neck Magnetic Resonance Angiography 02/28/171209 Signed Impressions: Service Date/Time: Tuesday, February 28, 2017 14:21 - CONCLUSION: 1. Normal MRA examination. No evidence for significant flow limiting stenosis in the carotid or vertebral arteries. Kit Kelsey MD Head Magnetic Resonance Angiography 02/28/171209 Signed Impressions: Service Date/Time: Tuesday, February 28, 2017 14:21 - CONCLUSION: 1. Negative examination. Leonardo Hernandez MD Brain MRI 02/28/171209 Signed Impressions: Service Date/Time: Tuesday, February 28, 2017 14:21 - CONCLUSION: Normal examination. Doug Núñez Jr., MD Head CT 02/28/17 0000 Signed Impressions: Service Date/Time: Tuesday, February 28, 2017 11:56 - CONCLUSION: 1. No acute intracranial abnormality. Leonardo Hernandez MD Chest X-Ray 02/28/17 0000 Signed Impressions: Service Date/Time: Tuesday, February 28, 2017 12:19 - CONCLUSION: No acute disease. Doug Núñez Jr., MD Carotid Artery Ultrasound 02/28/17 0000 Signed Impressions: Service Date/Time: Tuesday, February 28, 2017 14:21 - CONCLUSION: 1. No hemodynamically significant stenosis involving either carotid artery. 2. Antegrade flow involving both vertebral arteries. Doug Núñez Jr., MD PE at Discharge GENERAL: This is a well-nourished, well-developed patient, in no apparent distress. CARDIOVASCULAR: Regular rate and regular rhythm without murmurs, gallops, or rubs. RESPIRATORY: Clear to auscultation. Breath sounds equal bilaterally. No wheezes , rales, or rhonchi. GASTROINTESTINAL: Abdomen soft, non-tender, nondistended. Normal, active bowel sounds MUSCULOSKELETAL: Extremities without clubbing, cyanosis, or edema. NEURO: Alert & Oriented x4 to person, place, time, situation. Moves all ext x4 Hospital Course - right sided weakness/ syncope- possible TIA MRI/MRA brain normal with no significant stenosis on carotid doppler continue aspirin and started on statin- consulted PT/OT . neurology consult appreciated and cleared for discharge. echo and stress test pending- -chest pain; now is pain free- EKG is normal- on aspirin- cardiac enzymes negative. stress test pending. -hypertension; noncompliant;started lisinopril- vasotec prn for now- -DVT prophylaxis with SCD's Pt Condition on Discharge: Fair Discharge Disposition: Discharge Home Discharge Time: <= 30 minutes Discharge Instructions DIET: Follow Instructions for: Heart Healthy Diet Activities you can perform: Regular-No Restrictions Follow up Referrals: Neurology PCP Follow-up New Medications: Aspirin DR (Aspirin EC) 81 Mg Tabdr 81 MG PO DAILY tia Days 30 Ref 0 TAB Atorvastatin (Lipitor) 10 Mg Tab 10 MG PO DAILY tia Days 30 Ref 0 TAB Lisinopril (Lisinopril) 10 Mg Tab 10 MG PO DAILY hypertension Days 30 Ref 0 TAB Rai Lee MD Mar 02, 2017 12:12
--- NOTE | 2017-03-02 12:12 | RADRPT ---
EXAM DATE/TIME: 03/02/2017 09:29 [facility] COMPARISON: No previous studies available for comparison. INDICATIONS : Right sided chest pain radiating to the right arm for one day. Angina. DOSE: 31.1 mCi Tc99m Myoview at stress. 10 mCi Tc99m Myoview at rest. 0.4 mg Lexiscan STRESS SYMPTOMS: Dyspnea, nausea and head pressure. EJECTION FRACTION: 36% MEDICAL HISTORY : Hypertension. SURGICAL HISTORY : Right shoulder. ENCOUNTER: Initial ACUITY: 1 day PAIN SCALE: 6/10 LOCATION: Right chest TECHNIQUE: The patient underwent pharmacologic stress with infusion of prescribed dose. Continuous ECG tracing was monitored during stress. Gated SPECT imaging was performed after stress and conventional SPECT i maging was performed at rest. The examination was performed on a SPECT/CT scanner, both attenuation and non-corrected datasets were reviewed. FINDINGS: DISTRIBUTION: The maximum perfused segment at stress is in the anterolateral wall. PERFUSION STUDY: The pattern of perfusion at stress demonstrates slight reduction in perfusion to the posterior basal and inferior wall with slight redistribution during rest. GATED STUDY: There is slight global hypokinesis. CONCLUSION: Slight ischemia in RCA territory and there is reduction in ejection fraction. RISK CATEGORY: Intermediate (1-3% Annual Mortality Rate) Rudy Cox MD on March 02, 2017 at 12:08 Board Certified Radiologist. This report was verified electronically.
--- NOTE | 2017-03-02 12:12 | HHI.DCPOC ---
Discharge Care Plan Diagnosis: (1) Right sided weakness (2) Chest pain Your Health Problems Are: Chest Pain Loss of Movements Goals to Promote Your Health * To prevent worsening of your condition and complications * To maintain your health at the optimal level Directions to Meet Your Goals Take your medications as prescribed Follow your dietary instruction Follow activity as directed Keep your appointments as scheduled Take your immunizations and boosters as scheduled If your symptoms worsen call your PCP, if no PCP go to Urgent Care Center or Emergency Room Smoking is Dangerous to Your Health. Avoid second hand smoke Call the 24-hour hour crisis hotline for domestic abuse at Rai Lee MD Mar 02, 2017 12:11
[2017-03-02] MEDS ORDERED: ASPI81TA11 PO (12:14)
--- NOTE | 2017-03-02 17:54 | PD.CONS ---
Assessment and Plan Plan Consult received per stroke protocol. EMR reviewed and brain MRI negative for stroke and neurology consult notes TIA. Consult deferred due to no acute stroke. Please re-consult as needed. Thank you. Romy Haynes MD Mar 02, 2017 17:53
--- NOTE | 2017-03-02 18:02 | ECHRPT ---
Indication: chest pain CONCLUSIONS Karen LV systolic function with estimated 60% ejection fraction No wall motion abnormlaities No significant valvulopathies No pericardial effusion BP: 158 / 87 HR: 81 Rhythm: MEASUREMENTS (Male / Female) Normal Values Technical Quality: 2D ECHO LV Diastolic Diameter PLAX 4.8 cm 4.2 - 5.9 / 3.9 - 5.3 cm LV Systolic Diameter PLAX 3.6 cm IVS Diastolic Thickness 1.2 cm 0.6 - 1.0 / 0.6 - 0.9 cm LVPW Diastolic Thickness 1.3 cm 0.6 - 1.0 / 0.6 - 0.9 cm LV Relative Wall Thickness 0.5 RV Internal Dim ED PLAX 2.8 cm M-MODE Aortic Root Diameter MM 4.4 cm LA Systolic Diameter MM 4.3 cm LA Ao Ratio MM 1.0 AV Cusp Separation MM 2.2 cm FINDINGS LEFT VENTRICLE Normal left ventricular size and wall thickness. The left ventricular systolic function is normal wi th an estimated ejection fraction in the range of 60-65%. Left ventricular diastolic function parameters a re normal. RIGHT VENTRICLE Normal right ventricular size and systolic function. LEFT ATRIUM The left atrial size is normal. RIGHT ATRIUM The right atrial size is normal. ATRIAL SEPTUM Normal atrial septal thickness without atrial level shunting by limited color doppler interrogation. AORTA The aortic root and proximal ascending aorta are normal in size on limited imaging. MITRAL VALVE Structurally normal mitral valve. No mitral valve stenosis or regurgitation. AORTIC VALVE Trileaflet aortic valve. No aortic valve stenosis or regurgitation. TRICUSPID VALVE Structurally normal tricuspid valve. No tricuspid valve stenosis or regurgitation. PULMONARY VALVE The pulmonary valve is not well visualized. VESSELS The inferior vena cava is normal in size. PERICARDIUM No pericardial effusion. Vinod Dacosta MD (Electronically Signed) Final Date:02 March 2017 18:01
--- NOTE | 2017-03-02 19:11 | MB ---
cc: DIOMEDES DENNEY MD DATE OF CONSULTATION March 02, 2017 REASON FOR CONSULTATION Positive stress test. HISTORY OF PRESENT ILLNESS 52-year-old male with past medical history significant for hypertension, smoker , obesity that presented to the emergency department with headaches, lightheadedness, vertigo and right arm and foot weakness. He was admitted to rule out stroke versus TIA. He was seen by neurology. MRI and MRA of the brain unremarkable as well as carotid and CT scan of the head. He is still having some weakness of the right hand and foot as well as some vertigo and headaches. The working diagnosis is a TIA. In addition to these neurological symptoms, he complained of chest discomfort in the hospital not related to exertion and non-radiating. He underwent an echocardiogram that showed normal LV systolic function. EKG normal sinus rhythm. No signs of atrial fibrillation on telemetry. Also an MPI myocardial perfusion study was done showing slight ischemia in the RCA territory with reduction of ejection fraction. Thus, cardiology has been consulted for further management and evaluation. REVIEW OF SYSTEMS Negative except for what is mentioned in HPI. PAST MEDICAL HISTORY 1. Hypertension, 2. Cataract surgery, 3. Obesity, 4. Smoker. MEDICATIONS At home none. ALLERGIES NO KNOWN DRUG ALLERGIES. SOCIAL HISTORY Positive for smoking. Drinks alcohol socially. Denies illicit drug use. FAMILY HISTORY None. PHYSICAL EXAMINATION VITAL SIGNS: Temperature 96, respiratory rate 16, pulse 54, blood pressure 131/ 84, O2 sat 99% room air. GENERAL: He is awake. He is alert, oriented x3 in no acute distress. NECK: No JVD, no carotid bruits. HEART: Regular rate and rhythm. No murmurs, rubs or gallops. LUNGS: Clear to auscultation bilaterally. No wheezes, rhonchi or rales. ABDOMEN: Obese. Positive bowel sounds, soft, nontender, nondistended. EXTREMITIES: No cyanosis or edema. Pulses throughout. LABORATORY CBC - hemoglobin 12, hematocrit 36, platelet count 166, INR 0.90. Chemistries - sodium 143, potassium 3.8, BUN 14, creatinine 1.21 and troponin less than 0.02 x3, LDL 179, HDL 33. Urinalysis unremarkable. Toxicology unremarkable. IMAGING STUDIES Brain MRI, Head MRI, neck MRI and carotid ultrasound unremarkable. Myocardial perfusion study, as mentioned there is slight ischemia in the RCA territory. ASSESSMENT/PLAN 52-year-old male with cardiac risk factors that include hypertension, obesity, smoker that presents complaining of a TIA. He has been evaluated by neurology who understands and is being optimized on medications for TIA. He still is having some neurological deficits in the right side. His chest pain presentation is atypical. The myocardial reflection study shows slight ischemia in the RCA territory, although they mentioned that the ejection fraction is decreased. His echocardiogram EF is preserved. I think given the patient's risk factors, he should definitely need a cardiac workup in the future. However, given that at this point he has a recent TIA this will be relatively contraindication to pursue any invasive cardiac workup at this time such as left heart cath. Recommendations: 1. Aggressive medical management for CAD 2. Optimize his medical management, lifestyle modification and smoking cessation. 3. Follow up cardiology upon discharge. Thank you for the opportunity to participate in the care of this patient. We will be available on a p.r.n. basis for any other questions or concerns. The case has been discussed with Dr. Lee, attending in charge. MD CUAUHTEMOC [place]/ /6:33 PM /6:57 PM KARRI
[2017-03-02] MEDS: ACETAMINOPHEN 325 MG TAB PO PRN (22:54)
[2017-03-03] VITALS: BP 118/67; PULSE 55; RESP 20; TEMP 98.1; O2SAT 96
[2017-03-03 04:00] VITALS: BP 135/84; PULSE 54; RESP 20; TEMP 97.7; O2SAT 97
[2017-03-03] MEDS: ACETAMINOPHEN/HYDROcodone 325 MG/5 MG TAB PO PRN (04:20)
[2017-03-03] MEDS: SODIUM CHLOR 0.9% 1000 ML INJ 1,000 ML IV SCH ×2 (04:22→15:02)
[2017-03-03] MEDS: INSULIN ASPART SUPPLEMENTAL SCALE SQ SCH ×2 (05:49→11:25)
[2017-03-03 08:00] VITALS: BP 133/83; PULSE 54; RESP 17; TEMP 97.9; O2SAT 97
[2017-03-03] MEDS: LISINOPRIL 10 MG TAB PO SCH (08:15)
[2017-03-03] MEDS: ONDANSETRON HCL 4 MG/2 ML VIAL IV PUSH PRN (08:15)
[2017-03-03] MEDS: ATORVASTATIN 10 MG TAB PO SCH (08:16)
[2017-03-03] MEDS: ASPIRIN EC 81 MG TABEC PO SCH (08:16)
[2017-03-03] MEDS: ACETAMINOPHEN 325 MG TAB PO PRN (08:17)
[2017-03-03] MEDS: SODIUM CHLORIDE 0.9% FLUSH 5 ML FLUSH IV FLUSH SCH (08:17)
[2017-03-03 09:25] VITALS: O2SAT 97
[2017-03-03 10:36] VITALS: PULSE 49
--- NOTE | 2017-03-03 11:36 | HHI.PR ---
Subjective Remarks resting in no acute distress. says that had some ' anxiety' earlier this morning. no chest pain. d/w the RN. Objective Vitals Vital Signs Date Time Temp Pulse Resp B/P Pulse Ox O2 Delivery O2 Flow Rate FiO2 03/03/17 10:36 49 03/03/17 09:25 97 Nasal Cannula 2.00 03/03/17 08:00 97.9 54 17 133/83 97 03/03/17 04:00 97.7 54 20 135/84 97 03/03/17 00:00 98.1 55 20 118/67 96 03/02/17 20:00 97.5 61 20 154/84 96 03/02/17 18:20 96 Nasal Cannula 2.00 03/02/17 17:49 65 03/02/17 16:00 96.2 59 19 129/64 96 03/02/17 12:18 98.6 57 18 128/70 98 I/O 03/02/17 03/02/17 03/02/17 03/03/17 03/03/17 03/03/17 07:00 15:00 23:00 07:00 15:00 23:00 Intake Total 674 ml 960 ml 544 ml Output Total 500 ml 625 ml Balance 674 ml 960 ml 44 ml -625 ml Intake Oral 960 ml IV Total 674 ml 544 ml Output Urine Total 500 ml 625 ml # Voids 4 Result Diagram: 02/28/17 1145 02/28/17 1145 Imaging Last Impressions Myocardial Perfusion Scan Nuc Med 03/02/17 0000 Signed Impressions: Service Date/Time: Thursday, March 02, 2017 09:29 - CONCLUSION: Slight ischemia in RCA territory and there is reduction in ejection fraction. RISK CATEGORY: Intermediate (1-3%% Annual Mortality Rate) Rudy Cox MD Neck Magnetic Resonance Angiography 02/28/17 1210 Signed Impressions: Service Date/Time: Tuesday, February 28, 2017 14:21 - CONCLUSION: 1. Normal MRA examination. No evidence for significant flow limiting stenosis in the carotid or vertebral arteries. Kit Kelsey MD Head Magnetic Resonance Angiography 02/28/17 1210 Signed Impressions: Service Date/Time: Tuesday, February 28, 2017 14:21 - CONCLUSION: 1. Negative examination. Leonardo Hernandez MD Brain MRI 02/28/17 1210 Signed Impressions: Service Date/Time: Tuesday, February 28, 2017 14:21 - CONCLUSION: Normal examination. Doug Núñez Jr., MD Head CT 02/28/17 0000 Signed Impressions: Service Date/Time: Tuesday, February 28, 2017 11:56 - CONCLUSION: 1. No acute intracranial abnormality. Leonardo Hernandez MD Chest X-Ray 02/28/17 0000 Signed Impressions: Service Date/Time: Tuesday, February 28, 2017 12:19 - CONCLUSION: No acute disease. Doug Núñez Jr., MD Carotid Artery Ultrasound 02/28/17 0000 Signed Impressions: Service Date/Time: Tuesday, February 28, 2017 14:21 - CONCLUSION: 1. No hemodynamically significant stenosis involving either carotid artery. 2. Antegrade flow involving both vertebral arteries. Doug Núñez Jr., MD Objective Remarks GENERAL: This is a well-nourished, well-developed patient, in no apparent distress. CARDIOVASCULAR: Regular rate and regular rhythm without murmurs, gallops, or rubs. RESPIRATORY: Clear to auscultation. Breath sounds equal bilaterally. No wheezes , rales, or rhonchi. GASTROINTESTINAL: Abdomen soft, non-tender, nondistended. Normal, active bowel sounds MUSCULOSKELETAL: Extremities without clubbing, cyanosis, or edema. NEURO: Alert & Oriented x4 to person, place, time, situation. Moves all ext x4 Procedures none Medications and IVs Current Medications Sodium Chloride (NS 1000 ml Inj) 1,000 ml @ 70 mls/hr [id number] ONCE IV Last administered on 02/28/17 12:32; Start 02/28/17 at 12:10; Stop 03/01/17 at 02:27 ; Status DC Aspirin (Aspirin) 325 mg ONCE ONCE PO Last administered on 02/28/17 15:34; Start 02/28/17 at 15:30; Stop 02/28/17 at 15:31; Status DC Metoclopramide HCl (Reglan Inj) 5 mg ONCE ONCE IV PUSH Last administered on 15:34; Start 02/28/17 at 15:30; Stop 02/28/17 at 15:31; Status DC Ondansetron HCl (Zofran Inj) 4 mg ONCE ONCE IV PUSH Last administered on 15:34; Start 02/28/17 at 15:30; Stop 02/28/17 at 15:31; Status DC Gadodiamide (Omniscan Pf Inj) 20 ml STK-MED ONCE IV Last administered on 16:12; Start 02/28/17 at 16:12; Stop 02/28/17 at 16:13; Status DC Enalaprilat (Vasotec Inj) 1.25 mg Q8H PRN IV PUSH SBP>180, DBP>110; Start 08/05 at 16:30 Aspirin (Ecotrin Ec) 162 mg DAILY PO Last administered on 03/03/17 08:16; Start 03/01/17 at 09:00 Ondansetron HCl (Zofran Inj) 4 mg Q8H PRN IV PUSH NAUSEA Last administered on 08:15; Start 02/28/17 at 16:30 Acetaminophen (Tylenol) 650 mg Q4H PRN PO FEVER/HEADACHE Last administered on 08:17; Start 02/28/17 at 16:30 IV Flush (NS Flush) 2 ml BID IV FLUSH Last administered on 03/01/17 20:30; Start 03/01/17 at 09:00 IV Flush (NS Flush) 2 ml UNSCH PRN IV FLUSH FLUSH AFTER USING IV ACCESS; Start 02/28/17 at 21:45 Insulin Aspart (NovoLOG SUPPLEMENTAL SCALE) 1 ACHS SQ Last administered on 03/02 20:48; Start 03/01/17 at 07:00 Dextrose (D50w (Vial) Inj) 50 ml UNSCH PRN IV PUSH HYPOGLYCEMIA-SEE COMMENTS; Start 02/28/17 at 21:45 Glucagon (Glucagon Inj) 1 mg UNSCH PRN OTHER HYPOGLYCEMIA-SEE COMMENTS; Start 02/28/17 at 21:45 Aspirin (Aspirin Chew) 81 mg STK-MED ONCE .ROUTE ; Start 03/01/17 at 05:04; Stop 03/01/17 at 05:05; Status DC Acetaminophen/ Hydrocodone Bitart ([place] 5-325 Mg) 1 tab Q4H PRN PO SEE LABEL COMMENTS Last administered on 03/03/17 04:20; Start 7/13/17 at 11:00 Lisinopril 10 mg 10 mg DAILY PO Last administered on 03/03/17 08:15; Start at 11:00 Sodium Chloride (NS 1000 ml Inj) 1,000 ml @ 100 mls/hr Q10H IV Last administered on 03/03/17 04:22; Start 03/01/17 at 23:00 Atorvastatin Calcium (Lipitor) 10 mg DAILY PO Last administered on 03/03/17 08 :16; Start 03/02/17 at 09:00 Regadenoson (Lexiscan Inj) 0.4 mg STK-MED ONCE .ROUTE Last administered on 03/02 10:15; Start 03/02/17 at 10:15; Stop 03/02/17 at 10:16; Status DC A/P Assessment and Plan A/P - right sided weakness/ syncope- possible TIA MRI/MRA brain normal with no significant stenosis on carotid doppler continue aspirin and started on statin- consulted PT/OT . neurology consult appreciated and cleared for discharge. echo with EF 60% and no wall motion abnormalities. -chest pain; cardiac enzymes negative- stress test with slight ischemia- cardiology consulted and recommended outpatient cardiac work-up. -hypertension; noncompliant;started lisinopril- vasotec prn for now- -DVT prophylaxis with SCD's Discharge Planning dc home today - f/u; pcp ,cardiology and neurology. see med list. d/w the patient and EKTA. Rai Lee MD Mar 03, 2017 11:36
--- NOTE | 2017-03-03 11:37 | HHI.DS ---
Discharge Summary Admission Date Feb 28, 2017 at 17:19 Discharge Date: Mar 03, 2017 Admitting Diagnosis TIA vs CVA (1) Right sided weakness ICD Code: R53.1 Diagnosis: Principal (2) Chest pain ICD Code: R07.9 Diagnosis: Principal Procedures none Brief History - From Admission patient is a 52 y/o male with history of hypertension- not on any medication, presented to ER with headache. he says that he woke up with ' terrible headache this morning'.while he was driving to work he started to feel sick with chest pain and nausea. he says that the pain was midsternal with some radiation to the upper neck. he had some nausea but no emesis. he says that then he started to have some weakness of the right upper and lower extremity-although more pronounced in right hand. he doesn't remember if he had any slurred speech. he says that then he passed out. he regained his consciousness after a few minutes however still had some headache and right sided weakness for which he decided to come to ER. stroke alert was called at the time of arrival to ER. at the time of my evaluation he was comfortable with no chest pain and with improved headache. CBC/BMP: 02/28/17 1145 02/28/17 1145 Significant Findings Laboratory Tests Test 02/28/17 02/28/17 03/01/17 03/01/17 11:45 18:52 00:30 11:13 Red Blood Count 4.05 MIL/MM3 (4.50-5.90) Hemoglobin 12.4 GM/DL (13.0-17.0) Bedside Hemoglobin 11.2 G/DL (12.0-17.0) Hematocrit 36.9 % (39.0-51.0) Bedside Hematocrit 33.0 % (38.0-51.0) Monocytes (%) (Auto) 9.6 % (0.0-8.0) Chloride Level 108 MEQ/L (98-107) Estimat Glomerular Filtration 62 ML/MIN (>89) Rate Bedside Glucose 109 MG/DL (60-95) Aspartate Amino Transf 14 U/L (15-37) (AST/SGOT) Troponin I LESS THAN 0.02 LESS THAN 0.02 LESS THAN 0.02 NG/ML NG/ML NG/ML (0.02-0.05) (0.02-0.05) (0.02-0.05) Albumin 3.2 GM/DL (3.4-5.0) LDL Cholesterol 117 MG/DL (0-99) HDL Cholesterol 33.2 MG/DL (40.0-60.0) Imaging Last Impressions Myocardial Perfusion Scan Nuc Med 03/02/17 0000 Signed Impressions: Service Date/Time: Thursday, March 02, 2017 09:29 - CONCLUSION: Slight ischemia in RCA territory and there is reduction in ejection fraction. RISK CATEGORY: Intermediate (1-3%% Annual Mortality Rate) Rudy Cox MD Neck Magnetic Resonance Angiography 02/28/171209 Signed Impressions: Service Date/Time: Tuesday, February 28, 2017 14:21 - CONCLUSION: 1. Normal MRA examination. No evidence for significant flow limiting stenosis in the carotid or vertebral arteries. Kit Kelsey MD Head Magnetic Resonance Angiography 02/28/171209 Signed Impressions: Service Date/Time: Tuesday, February 28, 2017 14:21 - CONCLUSION: 1. Negative examination. Leonardo Hernandez MD Brain MRI 02/28/171209 Signed Impressions: Service Date/Time: Tuesday, February 28, 2017 14:21 - CONCLUSION: Normal examination. Doug Núñez Jr., MD Head CT 02/28/17 Signed Impressions: Service Date/Time: Tuesday, February 28, 2017 11:56 - CONCLUSION: 1. No acute intracranial abnormality. Leonardo Hernandez MD Chest X-Ray 02/28/17 Signed Impressions: Service Date/Time: Tuesday, February 28, 2017 12:19 - CONCLUSION: No acute disease. Doug Núñez Jr., MD Carotid Artery Ultrasound 02/28/17 Signed Impressions: Service Date/Time: Tuesday, February 28, 2017 14:21 - CONCLUSION: 1. No hemodynamically significant stenosis involving either carotid artery. 2. Antegrade flow involving both vertebral arteries. Doug Núñez Jr., MD PE at Discharge GENERAL: This is a well-nourished, well-developed patient, in no apparent distress. CARDIOVASCULAR: Regular rate and regular rhythm without murmurs, gallops, or rubs. RESPIRATORY: Clear to auscultation. Breath sounds equal bilaterally. No wheezes , rales, or rhonchi. GASTROINTESTINAL: Abdomen soft, non-tender, nondistended. Normal, active bowel sounds MUSCULOSKELETAL: Extremities without clubbing, cyanosis, or edema. NEURO: Alert & Oriented x4 to person, place, time, situation. Moves all ext x4 Hospital Course - right sided weakness/ syncope- possible TIA MRI/MRA brain normal with no significant stenosis on carotid doppler continue aspirin and started on statin- consulted PT/OT . neurology consult appreciated and cleared for discharge. echo with EF 60% and no wall motion abnormalities. -chest pain; cardiac enzymes negative- stress test with slight ischemia- cardiology consulted and recommended outpatient cardiac work-up. -hypertension; noncompliant;started lisinopril- vasotec prn for now- -DVT prophylaxis with SCD's Pt Condition on Discharge: Fair Discharge Disposition: Discharge Home Discharge Time: <= 30 minutes Discharge Instructions DIET: Follow Instructions for: Heart Healthy Diet Activities you can perform: Regular-No Restrictions Follow up Referrals: Cardiology Neurology PCP Follow-up New Medications: Aspirin DR (Aspirin EC) 81 Mg Tabdr 81 MG PO DAILY tia Days 30 Ref 0 TAB Atorvastatin (Lipitor) 10 Mg Tab 10 MG PO DAILY tia Days 30 Ref 0 TAB Lisinopril (Lisinopril) 10 Mg Tab 10 MG PO DAILY hypertension Days 30 Ref 0 TAB Rai Lee MD Mar 03, 2017 11:37
[2017-03-03 12:08] VITALS: BP 143/82; PULSE 62; RESP 17; TEMP 98; O2SAT 100
== END 2017-03-03 15:46 | disposition home or self-care (01) | DRG 69 ==
LOC: NEPC 10:12 → NEDA 17:19 → N05B 19:26
PROVIDERS: ADMIT Internal Medicine; ATTEND Internal Medicine
DX: G45.9 Transient cerebral ischemic attack, unspecified (principal); I10 Essential (primary) hypertension; R55 Syncope and collapse; F17.210 Nicotine dependence, cigarettes, uncomplicated; R53.1 Weakness; E66.9 Obesity, unspecified; R07.9 Chest pain, unspecified; I25.10 Atherosclerotic heart disease of native coronary artery without angina pectoris; Z91.14 Patient's other noncompliance with medication regimen
CPT/HCPCS: 70450; 70544; 70548; 70551; 71010; 78452; 80053; 80061; 80307; 81001; 82435; 82550; 82565; 82947; 82948; 83036; 84132; 84295; 84484; 84520; 85025; 85384; 85610; 85730; 93005; 93017; 93306; 93880; 96361; 96374; 96375; A9502; A9579; J1815; J2405; J2765; J2785; J7030